=== PATIENT | female | born 1970 | race African-American/Black ===

== ENCOUNTER 2022-04-28 23:06 | Emergency (ER) | payer OTHER ==
[~2022-04-28] VITALS: Ht 157.5 cm; Wt 68.0 kg
--- NOTE | 2022-04-28 23:18 | NUR ---
PT TO BED IN [facility] WITH EMS AT THIS TIME
[2022-04-28 23:20] VITALS: BP 152/74
--- NOTE | 2022-04-28 23:30 | NUR ---
PT REFUSING TO PROVIDE URINE
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
--- NOTE | 2022-04-28 23:45 | NUR ---
PT IS REFUSING TO CONFIM HER IDENTITY. PT STATED, "LET ME SLEEP, DO NOT SAY ANYTHING ELSE, RESPECT THAT."
[2022-04-28 23:47] LABS: BASOPHILS % (AUTO) 0.2 % (0.0-2.0); HEMATOCRIT 42.7 % (36-48); HEMOGLOBIN 14.7 g/dL (12.0-16.0); LYMPHOCYTES # (AUTO) 1.5 K/uL (2.5-16.5); LYMPHOCYTES % (AUTO) 16.7 % (20.5-51.1); MEAN CORPUSCULAR HEMOGLOBIN 28 pg (27-31); MEAN CORPUSCULAR HGB CONC 35 g/dL (33-37); MEAN CORPUSCULAR VOLUME 81.7 fL (80-94); MONOCYTES # (AUTO) 0.5 K/uL (0.8-1.0); MONOCYTES % (AUTO) 6.1 % (1.7-9.3); NEUTROPHILS # (AUTO) 6.8 K/uL (1.8-7.7); PLATELET COUNT (AUTO) 235 K/uL (140-450); RED BLOOD CELL COUNT(AUTO) 5.23 MIL/uL (4.20-5.40); RED CELL DISTRIBUTION WIDTH 15.2 % (11.6-13.7); WHITE BLOOD COUNT (AUTO) 8.8 K/uL (4.8-10.8)
[2022-04-29] MEDS ORDERED: HALOPERIDOL IM 5 MG/ML VIAL IM ONE (00:05)
[2022-04-29 00:07] LABS: ALBUMIN 4.3 g/dL (3.4-5.0); ANION GAP 24.3 (8-16); ASPARTATE AMINOTRANSFERASE 78 U/L (15-37); CARBON DIOXIDE 18.9 mmol/L (21-32); CHLORIDE 96 mmol/L (98-107); CREATININE 1.5 mg/dL (0.6-1.3); GFR ARICAN-AMERICAN 47 mL/min (>90); GLUCOSE 129 mg/dL (74-106); POTASSIUM 3.2 mmol/L (3.5-5.1); SODIUM SERUM 136 mmol/L (136-145); TOTAL BILIRUBIN 2.7 mg/dL (0.0-1.0); UREA NITROGEN, BLOOD 27 mg/dL (7-18)
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
[2022-04-29 00:12] LABS: ACETAMINOPHEN < 0.5 ug/ml (10-30)
[2022-04-29 00:13] LABS: SALICYLATE < 2.8 mg/dL (2.8-20.0)
--- NOTE | 2022-04-29 00:15 | NUR ---
PT GIVEN 5MG HALDOL
--- NOTE | 2022-04-29 00:35 | NUR ---
PT TOOK WRIST RESTRAINTS OFF.
--- NOTE | 2022-04-29 00:37 | NUR ---
WRIST RESTRAINTS WERE PLACED BACK ON
--- NOTE | 2022-04-29 01:10 | NUR ---
PT LAYING IN RAPHAEL, STARING BLANKLY AT CELLING
--- NOTE | 2022-04-29 02:54 | NUR ---
Patient appears to be resting comfortably in bed. Vital Signs within normal limits. Respirations even and unlabored.
--- NOTE | 2022-04-29 03:18 | NUR ---
RECEIVED REPORT FROM SASHA SAPP, ASSUMED CARE AT THIS TIME. PATIENT LAYING IN BED WITH EYES CLOSED, ON BEDSIDE DESIGN MANAGER. PATIENT NOT IN RESTRAINTS AT THIS TIME.
--- NOTE | 2022-04-29 03:30 | NUR ---
ROMÁN SWAB COLLECTED AND WALKED TO LAB
--- NOTE | 2022-04-29 05:26 | NUR ---
PATIENT TALKING TO PSYCHIATRIST VIA TELE PSYCH AT THIS TIME
[2022-04-29 05:54] VITALS: BP 147/81
--- NOTE | 2022-04-29 05:54 | NUR ---
Patient discharged with v/s stable. Written and verbal after care instructions ABOUT PSYCHOSIS given and explained. Patient verbalized understanding. Ambulatory with steady gait. All questions addressed prior to discharge. Advised to follow up with PMD. PATIENT PROVIDED WITH MENTAL HEALTH RESOURCES.
== END 2022-04-29 05:58 | disposition home or self-care (01) ==
LOC: MED 23:06
DX: F23 Brief psychotic disorder (principal); Z20.822 Contact with and (suspected) exposure to COVID-19
CPT/HCPCS: 36415; 80053; 85025; 87426; 96372; 99285; G0480; G0482; J1630